=== PATIENT | female | born 1985 | race Caucasian/White ===

== ENCOUNTER 2021-04-12 07:40 | Emergency (ER) | payer SELFPAY ==
[2021-04-12 07:54] VITALS: BP 149/89
--- NOTE | 2021-04-12 09:05 | Emergency Department Report ---
ED Female HPI - General Chief complaint: Urogenital-Female Stated complaint: VAGINAL ICHING Time Seen by Provider: 04/12/21 08:58 Source: patient Mode of arrival: Ambulatory Limitations: No Limitations - History of Present Illness Initial comments: 35-year-old obese -Japanese female with a history of diabetes presents to the emergency room stating she has had 2 weeks of vaginal itching. Patient states that she has not been taking her Metformin as prescribed as she is using it sparingly because she cannot afford the co-pay to her primary care provider. Patient denies any dysuria no vaginal bleeding no vaginal discharge no rashes. She denies any fever no abdominal pain no chest pain or shortness of breath. MD Complaint: other (Vaginal itching) Onset/Timin -: week(s) Location: perineum Severity: moderate Quality: other (Itchy) Consistency: constant Improves with: none Worsens with: medication (Not taken her medications) Are you Now?: No Last Menstrual Period: 03/28/21 EDC: 01/02/22 - Related Data Previous Rx's Medication Instructions Recorded Last Taken Type Metformin HCl [metFORMIN] 1,000 mg PO BID #60 tablet 04/12/21 Unknown Rx Allergies Allergy/AdvReac Type Severity Reaction Status Date / Time No Known Allergies Allergy Unverified 04/12/21 07:48 ED Review of Systems ROS: Stated complaint: VAGINAL ICHING Other details as noted in HPI Comment: All other systems reviewed and negative ED Past Medical Hx - Past Medical History Previous Medical History?: Yes Hx Diabetes: Yes - Surgical History Past Surgical History?: No - Social History Smoking Status: Never Smoker Substance Use Type: None - Medications Home Medications: Home Medications Medication Instructions Recorded Confirmed Last Taken Type Metformin HCl [metFORMIN] 1,000 mg PO BID #60 tablet 04/12/21 Unknown Rx ED Physical Exam - General Limitations: No Limitations General appearance: alert, in no apparent distress - Head Head exam: Present: atraumatic, normocephalic - Eye Eye exam: Present: normal appearance - ENT ENT exam: Present: normal external ear exam - Neck Neck exam: Present: normal inspection, full ROM - Respiratory Respiratory exam: Absent: accessory muscle use - Cardiovascular Cardiovascular Exam: Present: regular rate - Back Exam Back exam: Present: full ROM - Neurological Exam Neurological exam: Present: alert, oriented X3 - Psychiatric Psychiatric exam: Present: normal affect, normal mood - Skin Skin exam: Present: warm, dry, intact, normal color. Absent: rash ED Course Vital Signs 04/12/21 07:50 Temperature 98.5 F Pulse Rate 95 H Respiratory 18 Rate Blood Pressure 149/89 O2 Sat by Pulse 97 Oximetry ED Medical Decision Making - Medical Decision Making 35-year-old obese -Japanese female with a history of diabetes presents to the emergency room stating she has had 2 weeks of vaginal itching. Patient states that she has not been taking her Metformin as prescribed as she is using it sparingly because she cannot afford the co-pay to her primary care provider. Patient denies any dysuria no vaginal bleeding no vaginal discharge no rashes. She denies any fever no abdominal pain no chest pain or shortness of breath. Patient's blood sugar was 355 without medication. Discussed with patient I will refill her Metformin. She can try [id number] Monistat cream to place on the labia and perineum. I recommend patient to follow-up with her primary care provider. Patient verbalized understanding. Critical care attestation.: If time is entered above; I have spent that time in minutes in the direct care of this critically ill patient, excluding procedure time. ED Disposition Clinical Impression: Vaginitis, Diabetes mellitus, Severely overweight Disposition: DC-01 TO HOME OR SELFCARE Is pt being admited?: No Does the pt Need Aspirin: No Condition: Stable Instructions: Diabetes Mellitus Type 2 in Adults (ED), Type 2 Diabetes Mellitus, Self Care, Adult, [id number], Vaginitis, [id number] Additional Instructions: Please take your Metformin as prescribed. Try [id number] Monistat cream to place on the labia and perineum. Follow-up with your primary care provider. Prescriptions: Metformin HCl [metFORMIN] 1,000 mg PO BID #60 tablet Referrals: Your, primary care provider [Other] - 3-5 Days Time of Disposition: 09:06
== END 2021-04-12 09:15 | disposition home or self-care (01) ==
LOC: ED 07:40
DX: N76.0 Acute vaginitis (principal); E11.9 Type 2 diabetes mellitus without complications; Z98.890 Other specified postprocedural states; Z79.84 Long term (current) use of oral hypoglycemic drugs
CPT/HCPCS: 82962; 99283